=== PATIENT | female | born 1955 | race Hispanic/Latino ===

== ENCOUNTER 2023-12-02 09:48 | Outpatient (CLI) | payer BC | END 2023-12-02 09:49 | disposition home or self-care (01) | LOC: BICRAD 09:48 | PROVIDERS: ATTEND Nurse Practitioner Family | DX: R07.9 Chest pain, unspecified (principal) | CPT/HCPCS: 71046 ==

== ENCOUNTER 2025-08-15 16:43 | Inpatient (IN) | payer BC ==
[2025-08-15] MEDS ORDERED: Enoxaparin 60 MG (0.6 mL) SYRINGE ONE (17:58)
[2025-08-15] MEDS ORDERED: dilTIAZem 25 MG/5 ML VIAL ONE (18:04)
[2025-08-15 18:09] LABS: #Basophils 0.06 10x3/uL (0.0-0.2); #Eosinophils 0.07 10x3/uL (0.0-0.7); #Monocytes 0.56 10x3/uL (0.11-0.59); #Neutrophils 4.29 10x3/uL (1.40-6.50); %Basophils 0.8 % (0.0-1.0); %Eosinophils 0.9 % (0.0-10.0); %Lymphocytes 33.2 % (21.0-51.0); %Monocytes 7.5 % (0.0-10.0); %Neutrophils 57.3 % (42.0-75.0); Hematocrit 45.3 % (36.0-47.0); Hemoglobin 14.7 g/dL (12.0-16.0); Mean Corpuscular Hemoglobin 30.4 pg (27.0-31.0); Mean Corpuscular Volume 93.6 fL (78.0-98.0); Platelet Count 179 10x3/uL (130-400); Red Blood Cell (RBC) Count 4.84 mill/uL (4.20-5.40); White Blood Cell (WBC) Count 7.49 10x3/uL (4.8-10.8)
[2025-08-15 18:25] LABS: INR-International Normal Ratio 1.1; PTT 24.7 sec (22.9-36.1); Prothrombin Time 14.1 sec (12.0-14.7)
[2025-08-15 18:30] LABS: ALT (SGPT) 125 U/L (Less than 34); AST (SGOT) 120 U/L (11-34); Albumin 3.6 g/dL (3.1-4.5); Alkaline Phosphatase 101 U/L (40-110); Anion Gap 12 mmol/L (10-20); BUN (Urea Nitrogen) 22 mg/dL (9.8-20.1); Bilirubin, Total 0.7 mg/dL (0.3-1.2); Calc. Creatinine Clearance 0 mL/min (70-130); Calcium 9.2 mg/dL (7.8-10.44); Carbon Dioxide 21 mmol/L (23-31); Chloride 111 mmol/L (98-107); Globulin 3.5 g/dL (2.4-3.5); Glucose 110 mg/dL (80-115); Lipase 26 U/L (8-78); Potassium 4.2 mmol/L (3.5-5.1); Sodium 140 mmol/L (136-145)
[2025-08-15] MEDS ORDERED: Ondansetron PF 4 MG/2 ML Vial IVP PRN (19:39)
[2025-08-15] MEDS ORDERED: Acetaminophen 325 MG TAB PO PRN (19:39)
[2025-08-15] MEDS ORDERED: Calcium Carbonate 500 MG ChewTAB PO PRN (19:39)
[2025-08-15] MEDS ORDERED: Melatonin 3 MG TAB PO PRN (19:39)
[2025-08-15] MEDS ORDERED: Aspirin Chewable 81 MG TAB ONE (21:33)
[2025-08-15 21:50] LABS: Cardiac Risk 2.6 (Less than 4.5); Cholesterol 154 mg/dl (< 200 Desired); HDL Cholesterol 59 mg/dL (>60 Neg Risk); LDL Cholesterol, Calculated 81 mg/dL; Magnesium 2.1 mg/dL (1.6-2.6); Triglycerides 70 mg/dL (Less than 150)
[2025-08-15 23:50] VITALS: BMI 27.6
[2025-08-16 05:31] LABS: #Basophils 0.05 10x3/uL (0.0-0.2); #Eosinophils 0.08 10x3/uL (0.0-0.7); #Monocytes 0.63 10x3/uL (0.11-0.59); #Neutrophils 4.11 10x3/uL (1.40-6.50); %Basophils 0.7 % (0.0-1.0); %Eosinophils 1.1 % (0.0-10.0); %Lymphocytes 33.6 % (21.0-51.0); %Monocytes 8.6 % (0.0-10.0); %Neutrophils 55.9 % (42.0-75.0); Hematocrit 43.5 % (36.0-47.0); Hemoglobin 14.2 g/dL (12.0-16.0); Mean Corpuscular Hemoglobin 30.2 pg (27.0-31.0); Mean Corpuscular Volume 92.6 fL (78.0-98.0); Platelet Count 150 10x3/uL (130-400); Red Blood Cell (RBC) Count 4.70 mill/uL (4.20-5.40); White Blood Cell (WBC) Count 7.35 10x3/uL (4.8-10.8)
[2025-08-16 05:50] LABS: Anion Gap 11 mmol/L (10-20); BUN (Urea Nitrogen) 18 mg/dL (9.8-20.1); Calc. Creatinine Clearance 80 mL/min (70-130); Calcium 8.8 mg/dL (7.8-10.44); Carbon Dioxide 20 mmol/L (23-31); Chloride 114 mmol/L (98-107); Glucose 93 mg/dL (80-115); Potassium 4.0 mmol/L (3.5-5.1); Sodium 141 mmol/L (136-145)
[2025-08-16] MEDS: Enoxaparin 60 MG (0.6 mL) SYRINGE SC SCH (09:07)
[2025-08-16] MEDS: Metoprolol Succinate XL 25 MG ER.TAB PO SCH (09:37)
[2025-08-16] MEDS: Diltiazem HCl/D5W 125 MG in Premix 1 BAG IVPB SCH (14:30)
[2025-08-17 05:19] LABS: #Basophils 0.06 10x3/uL (0.0-0.2); #Eosinophils 0.05 10x3/uL (0.0-0.7); #Monocytes 0.58 10x3/uL (0.11-0.59); #Neutrophils 4.25 10x3/uL (1.40-6.50); %Basophils 0.8 % (0.0-1.0); %Eosinophils 0.7 % (0.0-10.0); %Lymphocytes 33.1 % (21.0-51.0); %Monocytes 7.8 % (0.0-10.0); %Neutrophils 57.3 % (42.0-75.0); Hematocrit 43.5 % (36.0-47.0); Hemoglobin 14.0 g/dL (12.0-16.0); Mean Corpuscular Hemoglobin 30.0 pg (27.0-31.0); Mean Corpuscular Volume 93.1 fL (78.0-98.0); Platelet Count 148 10x3/uL (130-400); Red Blood Cell (RBC) Count 4.67 mill/uL (4.20-5.40); White Blood Cell (WBC) Count 7.41 10x3/uL (4.8-10.8)
[2025-08-17 05:41] LABS: ALT (SGPT) 94 U/L (Less than 34); AST (SGOT) 67 U/L (11-34); Albumin 3.3 g/dL (3.1-4.5); Alkaline Phosphatase 89 U/L (40-110); Anion Gap 14 mmol/L (10-20); BUN (Urea Nitrogen) 13 mg/dL (9.8-20.1); Bilirubin, Total 1.3 mg/dL (0.3-1.2); Calc. Creatinine Clearance 85 mL/min (70-130); Calcium 8.9 mg/dL (7.8-10.44); Carbon Dioxide 19 mmol/L (23-31); Chloride 111 mmol/L (98-107); Globulin 3.1 g/dL (2.4-3.5); Glucose 111 mg/dL (80-115); Magnesium 1.8 mg/dL (1.6-2.6); Potassium 3.9 mmol/L (3.5-5.1); Sodium 140 mmol/L (136-145)
[2025-08-17 06:06] LABS: Hep A IgM AB NONREACTIVE (NonReactive); Hep A IgM S/CO 0.17 S/CO (0-0.79); Hep B Core IgM Index 0.18 S/CO (0-0.79); Hep B Surf Ag NONREACTIVE S/CO (NonReactive); Hep C IgG Ab NONREACTIVE S/CO (NonReactive); Hep C Index 0.13 S/CO (0-0.79)
[2025-08-17] MEDS ORDERED: Ketamine In 0.9 % NaCl 50 MG/5 ML SYRINGE ONE (07:17)
[2025-08-17] MEDS: Magnesium 2 GM/50 ML(in water) 2 GM in Premix 1 BAG IVPB SCH (09:28)
[2025-08-17] MEDS: Metoprolol Succinate XL 25 MG ER.TAB PO SCH (09:29)
[2025-08-17] MEDS: Senokot S 8.6-50 MG TAB PO PRN (09:45)
[2025-08-17] MEDS: Dapagliflozin Propanediol 10 MG TAB PO SCH (09:48)
[2025-08-17] MEDS: Lisinopril 5 MG TAB PO SCH ×2 (09:48→21:10)
[2025-08-18 07:34] VITALS: TEMP 98.1
[2025-08-18] MEDS: Dapagliflozin Propanediol 10 MG TAB PO SCH (08:35)
[2025-08-18 11:55] VITALS: BP 100/74
[2025-08-19] MEDS ORDERED: PNEUMOC 20-VAL CONJ-DIP CRM/PF 0.5 ML SYRINGE IM ONE (09:00)
== END 2025-08-18 15:10 | disposition home or self-care (01) | DRG 309 ==
LOC: ERS 16:43 → OBS 19:39
PROVIDERS: ADMIT Internal Medicine; ATTEND Hospitalist
DX: I48.0 Paroxysmal atrial fibrillation (principal); I50.22 Chronic systolic (congestive) heart failure; R74.01 Elevation of levels of liver transaminase levels; Z66 Do not resuscitate; I42.0 Dilated cardiomyopathy; Z79.899 Other long term (current) drug therapy; I08.3 Combined rheumatic disorders of mitral, aortic and tricuspid valves
CPT/HCPCS: 36415; 36416; 71045; 76705; 80048; 80053; 80061; 80074; 83690; 83735; 83880; 84443; 84484; 85025; 85610; 85730; 93005; 93306; 94760; 96365; 96366; 96372; 96376; J1650; J2250; J3475; J3490